=== PATIENT | female | born 1960 | race Caucasian/White ===

== ENCOUNTER 2019-08-19 09:24 | Day surgery (SDC) | payer BC ==
[2019-08-16 16:13] VITALS: BMI 27.1
[2019-08-19 11:31] VITALS: BP 125/73; PULSE 70; TEMP 97.4
--- NOTE | 2019-08-22 15:41 | PATH ---
Surgical Pathology Report Patient Name: TAWANNA CHAPMAN [facility]. Rec. #: [id number] /Age/Gender: 1960 (Age: 58) / F Account: [id number] Location: [facility] Taken: 08/19/2019 Received: 08/19/2019 Reported: 08/22/2019 Physicians: Moise Dawson M.D. Specimen(s) Received A: SECOND PORTION OF DUODENUM B: GASTRIC ANTRUM C: POLYP CECUM Clinical History GERD, screening Postoperative diagnosis: Mild gastritis with some erosions, mild duodenitis, diverticulosis, colon polyp, internal hemorrhoids Final Diagnosis A. SECOND PORTION OF DUODENUM, BIOPSY: MILD CHRONIC DUODENITIS. B. GASTRIC ANTRUM, BIOPSY: MILD CHRONIC GASTRITIS WITH FEATURES OF REACTIVE GASTROPATHY. IMMUNOSTAIN IS NEGATIVE FOR H. PYLORI ORGANISMS. C. CECUM, POLYP, BIOPSY: TUBULAR ADENOMA. Electronically Signed Yu Cortez M.D. Gross Description A. Received in formalin, labeled "biopsy second portion of duodenum" are 2 fam, irregular portions of soft tissue averaging 0.3 cm. in greatest dimension. The specimens are submitted in toto in one cassette. B. Received in formalin, labeled "biopsy gastric antrum" are 2 fam, irregular portions of soft tissue averaging 0.3 cm. in greatest dimension. The specimens are submitted in toto in one cassette. C. Received in formalin, labeled "biopsy polyp cecum" is a fam, irregular portion of soft tissue measuring 0.5 cm. in greatest dimension. The specimen is submitted in toto in one cassette. 08/20/2019 saudi08/20/2019
== END 2019-08-19 11:50 | disposition home or self-care (01) ==
LOC: FASU-ENDO 09:24
PROVIDERS: ATTEND Internal Medicine Gastroenterology
PROC: 0DB98ZX Excision of Duodenum, Via Natural or Artificial Opening Endoscopic, Diagnostic (ICD-10-PCS; 2019-08-19)
PROC: 0DB68ZX Excision of Stomach, Via Natural or Artificial Opening Endoscopic, Diagnostic (ICD-10-PCS; 2019-08-19)
PROC: 0DBH8ZX Excision of Cecum, Via Natural or Artificial Opening Endoscopic, Diagnostic (ICD-10-PCS; principal; 2019-08-19 10:32)
DX: Z12.11 Encounter for screening for malignant neoplasm of colon (principal); D12.0 Benign neoplasm of cecum; K57.30 Diverticulosis of large intestine without perforation or abscess without bleeding; K64.8 Other hemorrhoids; K29.50 Unspecified chronic gastritis without bleeding; K31.9 Disease of stomach and duodenum, unspecified; K29.80 Duodenitis without bleeding